=== PATIENT | male | born 1955 | race Caucasian/White ===

== ENCOUNTER → 2016-10-31 | Outpatient (CLI) | payer BC ==
[~2016-10-31] MED LIST: IOPAMIDOL (ISOVUE 370) 100 ML BTL IV ONE
== END ==
LOC: FIMAGING 12:38
PROVIDERS: ATTEND Internal Medicine Cardiovascular Disease
DX: I48.91 Unspecified atrial fibrillation (principal)
CPT/HCPCS: Q9967

== ENCOUNTER 2016-11-07 10:41 | Observation (INO) | payer BC ==
[2016-11-07] MEDS ORDERED: NS 1,000 ML IV ONE (11:01)
--- NOTE | 2016-11-07 11:12 | CPEKG ---
Heart Rate: 116 RR Interval: 517 QRSD Interval: 96 QT Interval: 360 QTC Interval: 501 QRS [place]: -36 T Wave [place]: -71 EKG Severity - ABNORMAL ECG - EKG Impression: ATRIAL FLUTTER, A-RATE 278 Electronically Signed By: Tacho Garza 07-Nov-2016 11:46:47
[2016-11-07 11:52] LABS: INR 1.11 (0.83-1.16); PROTIME(PATIENT) 14.2 SEC (12.0-15.0)
[2016-11-07 11:53] LABS: APTT 27.5 SEC (23.0-38.0)
[2016-11-07 11:54] LABS: % IMMATURE GRANULYOCYTES 0.7 % (0.0-1.1); ABSOLUTE IMMATURE GRANULOCYTES 0.06 10^3/uL (0.00-0.10); ADD DIFF? NO; ADD MORPH? NO; ADD SCAN? NO; ATYPICAL LYMPHOCYTE FLAG 10 (0-99); FRAGMENT RBC FLAG 0 (0-99); HEMOGLOBIN 14.9 g/dL (13.7-17.5); LEFT SHIFT FLG 10 (0-99); LIPEMIA HEMOLYSIS FLAG 90 (0-99); MEAN CELL HEMOGLOBIN 31.6 pg (27.9-34.1); MEAN CELL HEMOGLOBIN CONCENTR. 33.9 g/dL (32.4-36.7); MEAN CELL VOLUME 93.4 fL (81.5-99.8); MEAN PLATELET VOLUME 10.9 fL (8.7-11.7); PLATELET CLUMPS FLAG 0 (0-99); PLATELET COUNT 308 10^3/uL (150-400); RED BLOOD CELL COUNT 4.71 10^6/uL (4.40-6.38); RED CELL DISTRIBUTION WIDTH 13.2 % (11.5-15.2)
[2016-11-07] MEDS ORDERED: HEPARIN/DEXTROSE 25,000 UNIT/500 ML BAG ONE (11:54)
[2016-11-07] MEDS ORDERED: LIDOCAINE 1% 300 MG/30 ML SDV ONE (11:54)
[2016-11-07] MEDS ORDERED: HEPARIN 10,000 UNIT/10 ML MDV ONE (11:54)
[2016-11-07] MEDS ORDERED: BUPIVACAINE 0.5% 30 ML SDV ONE (11:54)
[2016-11-07 12:05] LABS: ANION GAP 11 mEq/L (8-16); CALCIUM 9.6 mg/dL (8.5-10.4); CARBON DIOXIDE 28 mEq/l (22-31); CHLORIDE 101 mEq/L (97-110); CREATININE 1.1 mg/dL (0.7-1.3); GLOMERULAR FILTRATION RATE > 60; GLUCOSE 92 mg/dL (70-100); MAGNESIUM 2.1 mg/dL (1.6-2.3); POTASSIUM 4.3 mEq/L (3.5-5.2); SODIUM 140 mEq/L (134-144)
[2016-11-07] MEDS ORDERED: ONDANSETRON 4 MG/2 ML VIAL IVP PRN ×2 (12:42→16:49)
[2016-11-07] MEDS ORDERED: fentaNYL 100 MCG/2 ML INJ IVP PRN (12:42)
[2016-11-07] MEDS ORDERED: ALBUTEROL 3 ML DEYVIAL IH PRN (12:42)
[2016-11-07] MEDS ORDERED: NALOXONE HCL 0.4 MG/ML INJ IVP PRN (12:42)
[2016-11-07] MEDS ORDERED: ACETAMINOPHEN 500 MG TAB PO PRN (12:42)
--- NOTE | 2016-11-07 12:42 | PDHPUP ---
History & Physical Update H&P update statement: This history and physical update is based on an assessment of the patient which was completed after admission or registration (within 24 hours), but prior to the surgery/procedure. H&P update: H&P reviewed & patient examined, no change in patient's condition since H&P completed
--- NOTE | 2016-11-07 12:42 | PDANEPAE ---
ANE History of Present Illness A. Fib Ablation ANE Past Medical History - Cardiovascular History Hx Hypertension: Yes Hx Arrhythmias: Yes - Pulmonary History Hx Oxygen in Use at Home: No Hx Sleep Apnea: No - GI History Gastrointestinal History Comment: Prostate CA ANE Review of Systems Review of Systems: ANE Patient History - Allergies Allergies/Adverse Reactions: Penicillins Allergy (Intermediate, Verified 12/04/08 15:55) Hives - Home Medications Home Medications: Aspirin [Aspirin 325 mg (OTC)] 325 mg PO DAILY 09/05/11 [Last Taken 11/06/16] Diltiazem [Cardizem 60 MG (*)] 60 mg PO TID 11/07/16 [Last Taken 11/06/16 20:00] Herbals/Supplements -Info Only 1 ea PO DAILY 11/07/16 [Last Taken Unknown] Ibuprofen [Motrin (*)] 200 mg PO DAILY PRN 11/07/16 [Last Taken Unknown] - Smoking Hx Smoking Status: Never smoked ANE Labs/Vital Signs - Labs Result Diagrams: 11/07/16 11:30 11/07/16 11:30 - Vital Signs Height: 178 cm Weight: 70.3 kg ANE Physical Exam - Airway Neck exam: FROM Mallampati Score: Class 2 Mouth exam: normal dental/mouth exam - Pulmonary Pulmonary: clear to auscultation - Cardiovascular Cardiovascular: regular rate and rhythym - ASA Status ASA Status: III ANE Anesthesia Plan Anesthesia Plan: general endotracheal anesthesia
[2016-11-07] MEDS ORDERED: PROPOFOL 200 MG/20 ML VIAL ONE (13:14)
[2016-11-07] MEDS ORDERED: fentaNYL 100 MCG/2 ML INJ ONE ×2 (13:14→15:14)
[2016-11-07] MEDS ORDERED: SUCCINYLCHOLINE CHLORIDE*ANESTHESIA ONLY*200 MG/10 ML SYR IVP ONE (13:15)
[2016-11-07] MEDS ORDERED: PHENYLEPHRINE HCL 100 MCG/ML SYR ONE (13:26)
[2016-11-07] MEDS ORDERED: IOPAMIDOL (ISOVUE-300) 100 ML BTL ONE (13:38)
[2016-11-07] MEDS ORDERED: DEXAMETHASONE 4 MG/ML VIAL ONE ×2 (14:08)
[2016-11-07] MEDS ORDERED: ONDANSETRON 4 MG/2 ML VIAL ONE (14:08)
[2016-11-07] MEDS ORDERED: epHEDrine SULFATE 10 MG/ML SYR ONE ×2 (14:11)
[2016-11-07] MEDS ORDERED: DESFLURANE 240 ML BOTTLE IH ONE (15:04)
[2016-11-07] MEDS ORDERED: OXYCODONE/APAP 5/325 TAB PO PRN (16:49)
[2016-11-07] MEDS ORDERED: ACETAMINOPHEN 325 MG TAB PO PRN (16:49)
[2016-11-07] MEDS ORDERED: PROTAMINE SULFATE 50 MG/5 ML VIAL IVP ONE (16:50)
[2016-11-07] MEDS ORDERED: ATROPINE SULFATE 1 MG/10 ML SYR ONE (17:26)
--- NOTE | 2016-11-07 17:58 | ECHO ---
[email or web address] [address] [address] Main: [phone] Fax: Transesophageal Echocardiography Name: MARCELLA CHANG MR#: [id number] Study Date: 11/07/2016 Study Time: 01:20 PM Date of : 1955 Age: 60 year(s) Height: ( ) Weight: ( ) BSA: Gender: Male Examination: Indication: Image Quality: Contrast: Requested by: Gustavo Hernandez Heart Rate: Rhythm: BP: / Procedure Staff Reading Physician: Gustavo Hernandez Lead Assistant Manager: IMELDA Exam Details Conclusions: ? Good color flow doppler in the left atrial appendage. ? No thrombus in left appendage. Measurements: Chambers Valvular Assessment AV/MV Valvular Assessment TV/PV Normal Normal Normal Name Value Range Name Value Range Name Value Range Additional Measurements: Findings: Left Ventricle: Normal global systolic LV function. Normal global systolic LV function. Right Ventricle: Left Atrium: Left Atrial Appendage: Good color flow doppler in the left atrial appendage. Normal PW-Doppler flow pattern. No thrombus in left appendage. Right Atrium: Mitral Valve: Patient: MARCELLA CHANG Study Date: 11/07/2016 Page 1 of 2 01:20 PM Aortic Valve: Tricuspid Valve: Pulmonic Valve: Great Vessels: Pericardium: (No Signature Object) Patient: MARCELLA CHANG Study Date: 11/07/2016 Page 2 of 2 01:20 PM [id number]
--- NOTE | 2016-11-07 18:04 | CPEKG ---
Heart Rate: 101 RR Interval: 594 P-R Interval: 192 QRSD Interval: 92 QT Interval: 356 QTC Interval: 462 P [place]: 81 QRS [place]: 77 T Wave [place]: -28 EKG Severity - ABNORMAL ECG - EKG Impression: SINUS TACHYCARDIA EKG Impression: BIATRIAL ABNORMALITIES EKG Impression: LATERAL INFARCT, AGE INDETERMINATE EKG Impression: BORDERLINE T ABNORMALITIES, INFERIOR LEADS Electronically Signed By: Kandis Sheppard 08-Nov-2016 06:47:20
--- NOTE | 2016-11-07 18:36 | POSTANESTH ---
Post Anesthetic Evaluation Cardiovascular Status: Normal, Stable Respiratory Status: Normal, Stable Level of Consciousness/Mental Status: Can Participate in Eval Pain Control: Adequate, Prn Tx Ordered Nausea/Vomiting Control: Adequate, Prn Tx Ordered Complications Possibly Related to Anesthesia: None Noted
[2016-11-07 20:18] LABS: ANION GAP 8 mEq/L (8-16); CALCIUM 8.5 mg/dL (8.5-10.4); CARBON DIOXIDE 25 mEq/l (22-31); CHLORIDE 105 mEq/L (97-110); GLOMERULAR FILTRATION RATE > 60; GLUCOSE 148 mg/dL (70-100); MAGNESIUM 1.9 mg/dL (1.6-2.3); POTASSIUM 4.4 mEq/L (3.5-5.2); SODIUM 138 mEq/L (134-144)
[2016-11-08] MEDS ORDERED: ENOXAPARIN 80 MG/0.8 ML SYR SC ONE ×2 (02:00→04:45)
[2016-11-08 05:20] LABS: % IMMATURE GRANULYOCYTES 0.4 % (0.0-1.1); ABSOLUTE IMMATURE GRANULOCYTES 0.05 10^3/uL (0.00-0.10); ADD DIFF? NO; ADD MORPH? NO; ADD SCAN? NO; ATYPICAL LYMPHOCYTE FLAG 0 (0-99); FRAGMENT RBC FLAG 0 (0-99); HEMATOCRIT 39.4 % (40.0-51.0); HEMOGLOBIN 13.1 g/dL (13.7-17.5); LEFT SHIFT FLG 10 (0-99); LIPEMIA HEMOLYSIS FLAG 80 (0-99); MEAN CELL HEMOGLOBIN 31.6 pg (27.9-34.1); MEAN CELL HEMOGLOBIN CONCENTR. 33.2 g/dL (32.4-36.7); MEAN CELL VOLUME 95.2 fL (81.5-99.8); MEAN PLATELET VOLUME 10.8 fL (8.7-11.7); PLATELET CLUMPS FLAG 0 (0-99); PLATELET COUNT 273 10^3/uL (150-400); RED BLOOD CELL COUNT 4.14 10^6/uL (4.40-6.38); RED CELL DISTRIBUTION WIDTH 13.5 % (11.5-15.2)
[2016-11-08 05:30] LABS: INR 1.12 (0.83-1.16); PROTIME(PATIENT) 14.3 SEC (12.0-15.0)
[2016-11-08 05:38] LABS: ANION GAP 9 mEq/L (8-16); CALCIUM 8.9 mg/dL (8.5-10.4); CARBON DIOXIDE 25 mEq/l (22-31); CHLORIDE 102 mEq/L (97-110); GLOMERULAR FILTRATION RATE > 60; GLUCOSE 175 mg/dL (70-100); POTASSIUM 4.6 mEq/L (3.5-5.2); SODIUM 136 mEq/L (134-144)
[2016-11-08 05:45] LABS: CK-MB INTERPRETATION POSITIVE (NEGATIVE)
--- NOTE | 2016-11-08 08:48 | CPEKG ---
Heart Rate: 90 RR Interval: 667 P-R Interval: 180 QRSD Interval: 94 QT Interval: 360 QTC Interval: 441 P [place]: 83 QRS [place]: 73 T Wave [place]: -48 EKG Severity - ABNORMAL ECG - EKG Impression: SINUS RHYTHM EKG Impression: NONSPECIFIC T ABNORMALITIES, INFERIOR LEADS Electronically Signed By: Tacho Garza 08-Nov-2016 09:00:02
[2016-11-08] MEDS ORDERED: PANTOPRAZOLE SODIUM 40 MG TAB PO SCH (09:00)
[2016-11-08] MEDS ORDERED: APIXABAN 5 MG TAB PO SCH (10:00)
[2016-11-08 11:58] VITALS: BP 128/74; PULSE 88; RESP 15; TEMP 98.4; O2SAT 97
--- NOTE | 2016-11-08 11:59 | ECHO ---
[email or web address] [address] [address] Main: [phone] Fax: Transthoracic Echocardiogram Name: MARCELLA CHANG MR#: [id number] Study Date: 11/08/2016 Study Time: 07:47 AM Date of : 1955 Age: 60 year(s) Height: 177.8 cm (70 in.) Weight: 69.85 kg (154 lb.) BSA: 1.87 m2 Gender: Male Examination: Echo Indication: Image Quality: Contrast: Requested by: Gustavo Hernandez BP: 129 mmHg/68 mmHg Heart Rate: Rhythm: Indication: Procedure Staff Hazmat Cdl A Driver: Wayne Dunbar Reading Physician: Gustavo Hernandez Conclusions: ? Normal global systolic LV function (EF 76 %). ? The left atrium is mildly dilated. ? No pericardial effusion. Measurements: Chambers Valvular Assessment AV/MV Valvular Assessment TV/PV Normal Normal Normal Name Value Range Name Value Range Name Value Range Ao Zoya (MM): 3.2 cm (2.2 cm-3.7 AV Vmax: 1.41 m/s (1 m/s-1.7 PV Vmax: 1.33 cm/s (0.6 m/s-0.9 cm) m/s) m/s) IVSd (2D): 0.7 cm (0.6 cm-1.1 AV maxP mmHg ( - ) PV PGmax: 7 mmHg ( - ) cm) LVOT Vmax: 1.04 m/s (0.7 m/s-1.1 LVDd (2D): 5.2 cm (4.2 cm-5.9 m/s) cm) MV E Vmax: 0.90 cm/s ( - ) LVDs (2D): 2.9 cm (2.1 cm-4 MV A Vmax: 0.50 cm/s ( - ) cm) MV E/A: 1.80 ( - ) LVPWd (2D): 0.9 cm (0.6 cm-1 cm) LVEF (2D): 76 (>=54 %) Continued Measurements: Chambers Valvular Assessment AV/MV Name Value Name Value LA Area: 17.0 cm? MV E' Septal: 0.10 m/s LA Volume: 45 ml MV E/E' Septal: 8.70 LA Volume Index: 24.1 ml/m? MV E/E' Lateral: 7.00 Findings: Left Ventricle: Patient: MARCELLA CHANG Study Date: 11/08/2016 Page 1 of 2 07:47 AM Normal size left ventricle. Normal global systolic LV function (EF 76 %). Right Ventricle: Normal size right ventricle. Left Atrium: The left atrium is mildly dilated. Normal appearing atrial septum. Right Atrium: Normal appearing atrial septum. Mitral Valve: The mitral valve is normal in appearance and function. Aortic Valve: The aortic valve is normal in appearance and function. The aortic valve is tri-leaflet and functions normally. Tricuspid Valve: The tricuspid valve is normal in appearance and function. Pulmonic Valve: Great Vessels: The aorta is normal. Pericardium: No pericardial effusion. (No Signature Object) Patient: MARCELLA CHANG Study Date: 11/08/2016 Page 2 of 2 07:47 AM [id number]
--- NOTE | 2016-11-08 18:52 | GDS ---
[f rep st] DISCHARGE SUMMARY ADMIT DIAGNOSIS: 1. Atrial fibrillation. 2. Planned electrophysiology study with planned ablation. DISCHARGE DIAGNOSIS: Status post successful atrial fibrillation ablation. HISTORY OF HOSPITALIZATION: This gentleman was seen in the clinic by Dr. Ty Troncoso for evaluat ion of continuing episodes of paroxysmal atrial fibrillation, which were coming with increased freque ncy, and recent association with dizziness. He has had medication management, which resulted in sign ificant side affects. It was recommended to consider ablation therapy. This was discussed with Dr. Hernandez, who was in agreement with this plan. He has a CHADS VASC score 0, and was continued on aspirin at that time. He was taken to the EP lab by Dr. Gustavo Hernandez on 11/07/2016, where he was able to eason ccessfully isolate the source of atrial fibrillation and proceeded with successful ablation. There w ere no complications. He was taken to overnight observation in the step-down unit of ICU. He has do ne well. He has noted occasional PVCs which have made him anxious. Reassurance given that these are not malignant arrhythmias. Groin sites were intact with no bleeding, induration, or pain. He will be placed on Eliquis 5 mg twice daily and Protonix. He will not go home on Cardizem or aspirin. He has been up ambulating with no dizziness, lightheadedness. At this time, he currently is stable for discharge. PHYSICAL EXAMINATION: VITAL SIGNS: On day of discharge, his blood pressure was 128/74, heart rate 8 8 and regular. His EKG showed normal sinus rhythm. Heart rate regular. No murmurs, rubs, gallops. LUNGS: Sounds are clear to auscultation. No wheezes, rales, or rhonchi. Bilateral groin sites are intact with no bleeding, induration, or tenderness. Peripheral pulses are 2+ bilaterally. ALLERGIES: He is allergic to penicillin. MEDICATIONS: He will go home on herbal supplements 1 daily. Motrin as needed daily. Tylenol 325 mg 1-2 tablets every 4 hours p.r.n. pain as needed not to exceed 3 g daily. Protonix 40 mg daily for 1 month. Eliquis 5 mg twice daily. TESTS: EKG on 11/08/2016 showed heart rate of 90, normal sinus rhythm. Echocardiogram on 11/08/2016 showed no pericardial effusions, no significant abnormalities. DISCHARGE PLAN: 1. He will be placed on Eliquis 5 mg twice daily for 2-3 months. 2. Protonix daily for 1 month. 3. Groin precautions for 7 days. No heavy lifting, pushing, pulling greater than 10 pounds. 4. Groin care instructions were given to keep clean and dry with soap and water. Apply no ointments . 5. Followup with Dr. Hernandez in 4 weeks. 6. Appointment scheduled 12/12/2016 at 10:[address] Hernandez. 7. Should he have other questions call the office at any time. At this time, he currently is stable for discharge. /[id number]/MODL
--- NOTE | 2016-11-09 10:08 | EPPROC ---
Electrophysiology Procedure Note: Procedures performed: 10912-13 EP evaluation with RA/RV/LA pace/record, with arrhythmia induction 96850-78 EP evaluation with RA/RV pace record, insert/reposition catheter, with arrhythmia induction 20517 Atrial fibrillation ablation 3 D Mapping SVT ablation Cardioversion Intracardiac echocardiogram Transseptal puncture Fluoroscopy INDICATION: Paroxysmal atrial fibrillation PROCEDURE: The patient arrived in the Electrophysiology Laboratory in the fasting state. The right groin, left groin and right infraclavicular area were prepped and draped in the usual sterile fashion. Anesthesiologist administered general anesthesia . IMELDA performed and LA clot ruled out. All catheters were placed percutaneously using the Seldinger technique and advanced into position under fluoroscopic guidance. One #7 Pakistani deflectable octapolar electrode catheter was placed in the His-bundle position via the left femoral vein (2mm spacing, IVC electrode for unipolar recordings). This catheter was placed in the coronary sinus after transseptal puncture and later placed in the SVC-R subclavian vein junction to pace the right phrenic nerve during right pulmonary vein ablation. One #8 [place] AcuNaV ultrasound catheter was placed in the left femoral vein and advanced into the right atrium. One #4 Pakistani sheath was inserted into the left femoral artery via percutaneous technique and used for continuous arterial blood pressure monitoring and intermittent ACT determination. Pt underwent synchronized DCCV and converted from Aflutter to SR Programmed stimulation was performed from the right atrium, left atrium (CS) and right ventricle. There was no evidence of AV accessory pathway. Intracardiac echo evaluation of the left atrium and pulmonary veins was performed. Baseline ACT was drawn and heparin bolus was administered and heparin drip was started prior to transseptal puncture. ACT was checked every 15 minutes and maintained in the range of 350-400 seconds. One 14Fr short sheath was placed in the right femoral vein. One 8Fr SL1 sheath was advanced into the right atrium via the 14Fr short sheath. Transseptal puncture was performed under intracardiac ultrasound, fluoroscopic and hemodynamic guidance placing the sheath into the left atrium. Roxana RF needle ( C0 curve) was used. The mean left atrial pressure was 4 mmHg. Pulmonary vein angiogram was done using SL1 sheath. CT angiography of pulmonary veins was done previously. There were distinct LSPV, LIPV, RSPV and RIPV. The SL1 sheath was exchanged for a Medtronic Flexcath sheath using an Amplatz stiff guide wire. A 28 mm Cryoballoon catheter with a 20 mm Achieve catheter was placed via the sheath into the left atrium. Intracardiac ultrasound and PV angiograms were used to assist in placing the mapping catheter at the antrum of the pulmonary veins. All pulmonary veins were isolated successfully using cryoballoon ablation using freeze/thaw/freeze cycles at 2-3-minute intervals, with good [id number] of isolation. Coumadin ridge/Ligament of Donn region was ablated. Pre and post pulmonary vein recordings were measured on the spiral Achieve catheter to ensure complete pulmonary vein isolation. During the right-sided ablation, phrenic nerve pacing was performed to assess the phrenic nerve strength ( manually and with ICE visualization of liver movement during phrenic capture) and the phrenic nerve was intact throughout the right-sided ablation and at the end of the procedure. An esophageal temperature probe (12 electrode, Circa) was placed by the anesthesiologist at the beginning of the procedure. Esophageal temperature was monitored continuously and cryoablation was interrupted if esophageal temperature was <15 C. Cryoapplications 10, total cryoablation time 840sec. Mapping of all 4 pulmonary veins showed that all 4 pulmonary veins remained isolated. ICE imaging post ablation was consistent with pre ablation imaging with no changes noted, moreover there was no left atrial/left ventricular thrombus and no pericardial effusion. The catheters were withdrawn. Live wire and Octapolar placed in the ALRA and CS position. Isthmus mapping was performed. Isthmus conduction time was 120ms. Using F curve Thermacool catheter, ablation was performed. Isthmus was isolated with post ablation isthmus conduction time of 170ms with split potential gap of 110ms. Differential pacing confirmed isthmus isolation. Burst pacing showed no induction of Aflutter. Protamine was given. The sheaths were removed and manual pressure was used for hemostasis. The patient was recovered from anesthesia. There were no complications. The patient was arousable and moving all four extremities at the end of the procedure. Results: Successful CV to SR Isolation of all 4 pulmonary veins with clear signal elimination in LSPV, LIPC and RIPV. Silent RSPV. Successful isthmus ablation CONCLUSIONS: * Paroxysmal atrial fibrillation and atrial flutter * Successful pulmonary vein isolation procedure (left and right pulmonary vein antrum) using cryoballoon ablation. * Successful CTI ablation * No apparent complications. Patient Problems: Problems Problem Status Onset Atrial fibrillation and flutter Acute
--- NOTE | 2016-11-09 17:16 | ASDISCHSUM ---
Discharge Information Plan Status:Home with No Needs Medically Cleared to Leave: Discharge Date:11/08/2016 02:34 PM CM D/C Disposition:Home, Routine, Self-Care ADT D/C Disposition:Home, Routine, Self-Care Projected Discharge Date:11/08/2016 02:34 PM Transportation at D/C: Discharge Delay Reason: Follow-Up Date:11/08/2016 02:34 PM Discharge Slot: Final Diagnosis: Placement Information Patient Contact Information Contact Name:ANTONIA Relationship:Other Address: Work Phone: City: [facility] Phone: State/Zip Code: Email: Financial Information Financial Class:HMO and PPO Plans Primary Plan Desc:[employer] PLAN Primary Plan Number:[id number] Secondary Plan Desc: Secondary Plan Number: Assessment Information Intervention Information
== END 2016-11-08 14:34 | disposition home or self-care (01) ==
LOC: FCATH 10:41 → F2N 17:00
PROVIDERS: ADMIT Internal Medicine Cardiovascular Disease; ATTEND Internal Medicine Cardiovascular Disease
DX: I48.0 Paroxysmal atrial fibrillation (principal); I48.92 Unspecified atrial flutter; R42 Dizziness and giddiness; Z79.82 Long term (current) use of aspirin; Z85.46 Personal history of malignant neoplasm of prostate
CPT/HCPCS: 93005; 93306; 93312; 93613; 93655; 93656; 93662; C1893; G0378; C1730; C1731; C1732; C1733; C1759; C1766; J0330; J0461; J1100; J1644; J1650; J2370; J2405; J2704; J2720; J3010; Q9967

== ENCOUNTER → 2016-11-21 | Outpatient (CLI) | payer BC | LOC: BMCIMAGING 08:30 | DX: S82.831A Other fracture of upper and lower end of right fibula, initial encounter for closed fracture (principal); W19.XXXA Unspecified fall, initial encounter ==

== ENCOUNTER → 2017-03-26 | Outpatient (CLI) | payer BC | LOC: BMCIMAGING 14:56 | PROVIDERS: ATTEND Podiatrist Foot & Ankle Surgery | DX: S89.301D Unspecified physeal fracture of lower end of right fibula, subsequent encounter for fracture with routine healing (principal); M89.8X7 Other specified disorders of bone, ankle and foot ==

== ENCOUNTER 2018-01-02 15:02 | Emergency (ER) | payer BC ==
[2018-01-02] MEDS ORDERED: NS 1,000 ML IV ONE (15:29)
--- NOTE | 2018-01-02 15:36 | EDPHY ---
H & P Stated Complaint: Feeling flushed, palpitations on and off for 2 days. Time Seen by Provider: 01/02/18 15:35 HPI/ROS: HPI CHIEF COMPLAINT: Palpitations, feeling flushed HISTORY OF PRESENT ILLNESS: Very pleasant 62-year-old male, he has a history of AFib/a flutter. He has had a cardioversion. Presents emergency room stating for the past 2 days he has been feeling flushed, and additionally feels palpitations. Patient reports that feeling palpitations not uncommon for him however his palpitations have increased. States typically he sometimes has palpitations that he feels 6 times a day. However does not last for very long. Reports that is been lasting more prolonged. Patient denies any chest pain or pleuritic pain, denies any shortness of breath. Initially went to urgent care for this was recommended come the emergency room. Reports that is oxygen level was low there and that he had a fever there however does not have a fever or hypoxia triage. He is hypertensive. Past Medical History: AFib/a flutter status post cardiac ablation. Hypertension who states controls by stress, and exercise. Past Surgical History: Cardiac ablation, AFib Social History: Patient denies drugs alcohol tobacco. Family History: Noncontributory ROS REVIEW OF SYSTEMS: 10 Systems were reviewed and negative with the exception of the elements mentioned in the history of present illness. Exam Constitutional nontoxic no acute distress, triage nursing summary reviewed, vital signs reviewed, awake/alert. Vital signs stable. Hypertensive. Eyes normal conjunctivae and sclera, EOMI, PERRLA. HENT normal inspection, atraumatic, moist mucus membranes, no epistaxis, neck supple/ no meningismus, no raccoon eyes. Respiratory clear to auscultation bilaterally, normal breath sounds, no respiratory distress, no wheezing. Cardiovascular rate normal, regular rhythm, no murmur, no edema, distal pulses normal. Gastrointestinal soft, non-tender, no rebound, no guarding, normal bowel sounds, no distension, no pulsatile mass. Genitourinary no CVA tenderness. Musculoskeletal no midline vertebral tenderness, full range of motion, no calf swelling, no tenderness of extremities, no meningismus, good pulses, neurovascularly intact. Skin pink, warm, & dry, no rash, skin atraumatic. Neurologic awake, alert and oriented x 3, AAOx3, moves all 4 extremities equally, motor intact, sensory intact, CN II-XII intact, normal cerebellar, normal vision, normal speech. Psychiatric normal mood/affect. Heme/Lymph/Immune no lymphadenopathy. Differential diagnosis includes but is not limited to: ACS, atypical chest pain , pneumothorax, pneumonia, pulmonary embolism, aortic dissection, congestive heart failure, tumor, musculoskeletal pain, esophageal pain, GERD, peptic ulcer disease, pancreatitis Medical Decision Making: Plan for this patient IV establishment full cafeteria monitor, blood draw, gentle IV fluids, chest x-ray, electrolytes, troponin, re- evaluate. Re-evaluation: EKG interpretation by me on record in [employer] system. Impression time of EKG 153, sinus rhythm rate of 79 ST depression lead to [address] elevation. When compared to the patient's old EKG this is very similar morphology. I have compared this to his EKG dated 11/08/2016. The previous ST depression to 3 AVF and T-wave inversions lead 3 and AVF for very similar morphology to his previous EKG. Troponin 0.00. 184. Patient re-evaluated this time resting comfortably no acute distress. He denies any chest pain or shortness of breath. Is noted his blood pressure slightly high here. This could be the cause of him feeling flushed. He has not had any signs of cardiac arrhythmia here in the emergency room. No chest pain or shortness of breath. His blood work including troponin is negative. Electrolytes appropriate. 1840: Patient is resting comfortably here no acute distress. EKG interpretation by me on record in [employer] system. Impression time of EKG this is a repeat EKG 1903, sinus rhythm rate of [address] depression that was seen in 2-3 AVF and T-wave inversions is very similar to his previous EKG and unchanged from the EKG today. I do not appreciate acute ischemic change today on this EKG. I did re-evaluate him at 7:16 p.m. He is resting comfortably in feels well. No acute distress. Denies chest pain shortness of breath he has been ambulatory multiple times throughout the emergency room denies any complaints is eager for discharge home. 2nd troponin 0.00. Patient eager to be discharged home. Requesting discharge. Return precautions discussed with the patient. Unclear what is causing the flushing. Palpitations. No evidence of cardiac arrhythmia on monitor. 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 Additionally recommend close observation of his blood pressure. Return to the ER for worsening symptoms. Source: Patient - Personal History Current Tetanus Diphtheria and Acellular Pertussis (TDAP): Unsure - Medical/Surgical History Hx Asthma: No Hx Chronic Respiratory Disease: No Hx Diabetes: No Hx Cardiac Disease: No Hx Renal Disease: No Hx Cirrhosis: No Hx Alcoholism: No Hx HIV/AIDS: No Hx Splenectomy or Spleen Trauma: No Other PMH: prostate cancer, prostatectomy,knee surgery, shoulder surgery, right foot surgery, afib, aflutter, palpitations. - Social History Smoking Status: Never smoked Constitutional: Initial Vital Signs Temperature (C) 36.6 C 01/02/18 15:08 Heart Rate 78 01/02/18 15:08 Respiratory Rate 18 01/02/18 15:08 Blood Pressure 177/88 H 01/02/18 15:08 O2 Sat (%) 96 01/02/18 15:08 O2 Delivery Mode Room Air Allergies/Adverse Reactions: Penicillins Allergy (Intermediate, Verified 12/04/08 15:55) Hives Home Medications: Medication Instructions Recorded Fish Oil 1,000 mg Softgel 01/02/18 Medical Decision Making - Diagnostics Imaging Results: Imaging Impressions Chest X-Ray 01/02/18 15:29 Impression: Nothing acute identified. - Data Points Laboratory Results: Laboratory Results 01/02/18 15:40 01/02/18 15:40 01/02/18 01/02/18 01/02/18 19:03 15:45 15:40 WBC RBC Hgb Hct MCV MCH MCHC RDW Plt Count MPV Neut % (Auto) Lymph % (Auto) [place] % (Auto) Eos % (Auto) Baso % (Auto) Nucleat RBC Rel Count Absolute Neuts (auto) Absolute Lymphs (auto) Absolute Monos (auto) Absolute Eos (auto) Absolute Basos (auto) Absolute Nucleated RBC Immature Gran % Immature Gran # PT INR APTT Sodium 138 mEq/L mEq/L (135-145) Potassium 3.8 mEq/L mEq/L (3.3-5.0) Chloride 100 mEq/L mEq/L (97-110) Carbon Dioxide 28 mEq/l mEq/l (22-31) Anion Gap 10 mEq/L mEq/L (6-14) BUN 17 mg/dL mg/dL (7-23) Creatinine 1.1 mg/dL mg/dL (0.7-1.3) Estimated GFR > 60 Glucose 102 mg/dL H mg/dL (70-100) Calcium 9.4 mg/dL mg/dL (8.5-10.4) Magnesium 2.1 mg/dL mg/dL (1.6-2.3) Total Bilirubin 0.7 mg/dL mg/dL (0.1-1.4) Conjugated Bilirubin 0.1 mg/dL mg/dL (0.0-0.5) Unconjugated Bilirubin 0.6 mg/dL mg/dL (0.0-1.1) AST 33 IU/L IU/L (17-59) ALT 34 IU/L IU/L (21-72) Alkaline Phosphatase 47 IU/L IU/L (38-126) POC Troponin I 0.00 ng/mL ng/mL 0.00 ng/mL ng/mL (0.00-0.08) (0.00-0.08) NT-Pro-B Natriuret Pep 46 pg/mL pg/mL (0-125) Total Protein 7.9 g/dL g/dL (6.3-8.2) Albumin 4.5 g/dL g/dL (3.5-5.0) Lipase 65 IU/L IU/L (23-300) 01/02/18 01/02/18 15:40 15:40 WBC 7.37 10^3/uL 10^3/uL (3.80-9.50) RBC 5.03 10^6/uL 10^6/uL (4.40-6.38) Hgb 15.7 g/dL g/dL (13.7-17.5) Hct 45.7 % % (40.0-51.0) MCV 90.9 fL fL (81.5-99.8) MCH 31.2 pg pg (27.9-34.1) MCHC 34.4 g/dL g/dL (32.4-36.7) RDW 12.7 % % (11.5-15.2) Plt Count 295 10^3/uL 10^3/uL (150-400) MPV 10.5 fL fL (8.7-11.7) Neut % (Auto) 70.1 % % (39.3-74.2) Lymph % (Auto) 23.3 % % (15.0-45.0) [place] % (Auto) 5.4 % % (4.5-13.0) Eos % (Auto) 0.4 % L % (0.6-7.6) Baso % (Auto) 0.7 % % (0.3-1.7) Nucleat RBC Rel Count 0.0 % % (0.0-0.2) Absolute Neuts (auto) 5.16 10^3/uL 10^3/uL (1.70-6.50) Absolute Lymphs (auto) 1.72 10^3/uL 10^3/uL (1.00-3.00) Absolute Monos (auto) 0.40 10^3/uL 10^3/uL (0.30-0.80) Absolute Eos (auto) 0.03 10^3/uL 10^3/uL (0.03-0.40) Absolute Basos (auto) 0.05 10^3/uL 10^3/uL (0.02-0.10) Absolute Nucleated RBC 0.00 10^3/uL 10^3/uL (0-0.01) Immature Gran % 0.1 % % (0.0-1.1) Immature Gran # 0.01 10^3/uL 10^3/uL (0.00-0.10) PT 13.7 SEC SEC (12.0-15.0) INR 1.03 (0.83-1.16) APTT 26.7 SEC SEC (23.0-38.0) Sodium Potassium Chloride Carbon Dioxide Anion Gap BUN Creatinine Estimated GFR Glucose Calcium Magnesium Total Bilirubin Conjugated Bilirubin Unconjugated Bilirubin AST ALT Alkaline Phosphatase POC Troponin I NT-Pro-B Natriuret Pep Total Protein Albumin Lipase Medications Given: Discontinued Medications Sodium Chloride (Ns) 1,000 mls @ 0 mls/hr IV EDNOW ONE; Wide Open PRN Reason: Protocol Stop: 01/02/18 15:30 Last Admin: 01/02/18 16:18 Dose: 1,000 mls Point of Care Test Results: Chemistry 01/02/18 01/02/18 19:03 15:45 POC Troponin I 0.00 ng/mL ng/mL 0.00 ng/mL ng/mL (0.00-0.08) (0.00-0.08) Departure - Departure Disposition: Home, Routine, Self-Care Clinical Impression: Palpitations Condition: Good Instructions: Heart Palpitations (ED), Hypertension (ED) Additional Instructions: 1. Keep a close eye on your blood pressure 2. Return emergency room if he develops worsening symptoms 3. Return if develops chest pain, shortness of breath, not feeling well. Referrals: Amparo Lin MD [Primary Care Provider] - As per Instructions Ty Troncoso MD [Medical Doctor] - As per Instructions
[2018-01-02 15:51] LABS: PLATELET COUNT 295 10^3/uL (150-400)
[2018-01-02 16:10] LABS: INR 1.03 (0.83-1.16); PROTIME(PATIENT) 13.7 SEC (12.0-15.0)
[2018-01-02 19:56] VITALS: BP 175/92
--- NOTE | 2018-01-08 07:05 | CPEKG ---
Test Reason : OPEN Blood Pressure : / mmHG Vent. Rate : 079 BPM Atrial Rate : 078 BPM P-R Int : 169 ms QRS Dur : 095 ms QT Int : 379 ms P-R-T Axes : 085 080 -10 degrees QTc Int : 435 ms Sinus rhythm Abnormal Q wave in V1 Confirmed by Robert Rea ([id number]) on 01/08/2018 7:05:14 AM Referred By: Confirmed By:Robert Rea
--- NOTE | 2018-01-08 07:05 | CPEKG ---
Test Reason : OPEN Blood Pressure : / mmHG Vent. Rate : 066 BPM Atrial Rate : 066 BPM P-R Int : 186 ms QRS Dur : 099 ms QT Int : 417 ms P-R-T Axes : 073 064 -21 degrees QTc Int : 437 ms Sinus rhythm Abnormal Q wave in V1 Borderline T abnormalities, inferior leads Confirmed by Robert Rea ([id number]) on 01/08/2018 7:05:14 AM Referred By: Confirmed By:Robert Rea
== END 2018-01-02 19:56 | disposition home or self-care (01) ==
DX: R00.2 Palpitations (principal)
CPT/HCPCS: 84484-PO